=== PATIENT | male | born 1930 | race Hispanic/Latino ===

== ENCOUNTER 2017-03-30 15:51 | Inpatient (IN) | payer MEDICARE ==
[~2017-03-30] VITALS: Ht 175.3 cm; Wt 81.7 kg
[2017-03-30 17:14] LABS: BASOPHILS % (AUTO) 0.8 % (0.0-5.0); EOSINOPHILS % (AUTO) 1.6 % (0.0-8.0); HEMATOCRIT 43.3 % (42-54); LYMPHOCYTES % (AUTO) 20.7 % (21.0-51.0); MEAN CORPUSCULAR HEMOGLOBIN 31.4 pg (27.0-33.0); MEAN CORPUSCULAR HGB CONC 34.2 g/dL (32.0-36.0); MEAN CORPUSCULAR VOLUME 91.9 fL (79-99); MONOCYTES % (AUTO) 12.1 % (3.0-13.0); NEUTROPHILS % (AUTO) 64.8 % (40.0-77.0); PLATELET COUNT (AUTO) 187 K/uL (130-400); RED BLOOD CELL COUNT(AUTO) 4.71 MIL/uL (4.50-6.20); RED CELL DISTRIBUTION WIDTH 13.7 % (11.0-15.5); WHITE BLOOD COUNT (AUTO) 7.1 K/uL (4.8-10.8)
[2017-03-30 17:25] LABS: POTASSIUM 4.2 mmol/L (3.5-5.1)
[2017-03-30 17:29] LABS: ALBUMIN 3.8 g/dL (3.5-5.0); BILIRUBIN,TOTAL 0.3 mg/dL (0.2-1.0)
[2017-03-30 17:51] LABS: APPEARANCE,URINE Clear (CLEAR); BILIRUBIN,URINE Negative (NEGATIVE); COLOR,URINE Yellow (YELLOW); GLUCOSE, URINE (UA) Negative (NEGATIVE); KETONES,URINE Trace mg/dL (NEGATIVE); LEUKOCYTE ESTERASE ,URINE Negative (NEGATIVE); NITRATE,URINE Negative (NEGATIVE); OCCULT BLOOD,URINE Trace (NEGATIVE); PROTEIN,URINE Negative (NEGATIVE)
[2017-03-30 18:04] LABS: BACTERIA,URINE None Seen /HPF (None Seen); RBC,URINE 0-1 /HPF (0-1); SQUAMOUS EPITHELIAL CELL,UR 0-2 /LPF (0-2); WBC,URINE None Seen /HPF (0-1)
[2017-03-30 20:32] VITALS: BP 156/89
[2017-03-30] MEDS ORDERED: LISI-613 PO (20:57)
[2017-03-30] MEDS ORDERED: GLIP1TAB5 PO (20:57)
[2017-03-30] MEDS ORDERED: TAMS-1 PO (20:57)
[2017-03-30] MEDS ORDERED: ASPI-555 PO (20:57)
[2017-03-30] MEDS ORDERED: SIMV40TA2 PO (20:57)
[2017-03-31] VITALS (7 sets, daily range): BP systolic 116–153; BP diastolic 66–81
[2017-03-31] MEDS: ASPIRIN 81 MG EC TAB PO SCH (09:46)
[2017-03-31] MEDS: TAMSULOSIN HCL 0.4 MG CAP.ER.24H PO SCH (09:46)
[2017-03-31] MEDS: ATORVASTATIN CALCIUM 20 MG TABLET PO SCH (09:47)
[2017-03-31] MEDS: GLIPIZIDE XL 2.5MG TAB PO SCH (09:47)
[2017-03-31] MEDS: LISINOPRIL 20 MG TABLET PO SCH (09:47)
[2017-03-31] MEDS: METFORMIN HCL 500 MG TAB.SR.24H PO SCH (09:47)
[2017-03-31] MEDS: TRAZODONE HCL 100 MG TABLET PO SCH (20:53)
[2017-03-31] MEDS ORDERED: RISPERIDONE 1 MG TABLET PO PRN (21:00)
[2017-03-31] MEDS ORDERED: RISPERIDONE 1 MG TABLET PO SCH (21:00)
[2017-04-01 04:08] VITALS: BP 125/67
[2017-04-01 07:46] VITALS: BP 140/79
[2017-04-01] MEDS: ASPIRIN 81 MG EC TAB PO SCH (09:41)
[2017-04-01] MEDS: LISINOPRIL 20 MG TABLET PO SCH (09:41)
[2017-04-01] MEDS: ATORVASTATIN CALCIUM 20 MG TABLET PO SCH (09:41)
[2017-04-01] MEDS: TAMSULOSIN HCL 0.4 MG CAP.ER.24H PO SCH (09:41)
[2017-04-01] MEDS: METFORMIN HCL 500 MG TAB.SR.24H PO SCH (11:22)
[2017-04-01] MEDS: GLIPIZIDE XL 2.5MG TAB PO SCH (11:22)
[2017-04-01 11:28] VITALS: BP 109/59
[2017-04-01 15:53] VITALS: BP 99/57
[2017-04-01 20:53] VITALS: BP 111/61
[2017-04-01] MEDS: TRAZODONE HCL 100 MG TABLET PO SCH (21:34)
[2017-04-01 23:20] VITALS: BP 133/66
[2017-04-02 04:21] VITALS: BP 108/56
[2017-04-02 08:27] VITALS: BP 114/60
[2017-04-02] MEDS: TAMSULOSIN HCL 0.4 MG CAP.ER.24H PO SCH (09:06)
[2017-04-02] MEDS: ASPIRIN 81 MG EC TAB PO SCH (09:07)
[2017-04-02] MEDS: METFORMIN HCL 500 MG TAB.SR.24H PO SCH (09:07)
[2017-04-02] MEDS: ATORVASTATIN CALCIUM 20 MG TABLET PO SCH (09:07)
[2017-04-02] MEDS: GLIPIZIDE XL 2.5MG TAB PO SCH (09:07)
[2017-04-02] MEDS: LISINOPRIL 20 MG TABLET PO SCH (09:07)
[2017-04-02 16:00] VITALS: BP 103/55
[2017-04-02] MEDS ORDERED: TRAZ-147 PO (16:17)
== END 2017-04-02 16:45 | disposition home or self-care (01) | DRG 884 ==
LOC: EDH 15:51 → EDHIP 15:52 → 3AH 19:17
PROVIDERS: ADMIT Internal Medicine; ATTEND Internal Medicine
DX: F03.91 Unspecified dementia, unspecified severity, with behavioral disturbance (principal); F05 Delirium due to known physiological condition; E11.9 Type 2 diabetes mellitus without complications; F03.90 Unspecified dementia, unspecified severity, without behavioral disturbance, psychotic disturbance, mood disturbance, and anxiety; E78.5 Hyperlipidemia, unspecified; I25.10 Atherosclerotic heart disease of native coronary artery without angina pectoris; I10 Essential (primary) hypertension; G47.00 Insomnia, unspecified; Z79.899 Other long term (current) drug therapy
CPT/HCPCS: 36415; 70450; 80053; 81001; 82948; 85025; 97039

== ENCOUNTER 2017-04-22 08:27 | Observation (INO) | payer MEDICARE, OTHER ==
[~2017-04-22] VITALS: Ht 170.2 cm; Wt 81.6 kg
[~2017-04-22 08:27] MED LIST: ASPI-555 PO; GLIP1TAB5 PO; LISI-613 PO; SIMV40TA2 PO; TAMS-1 PO; TRAZ-147 PO
[2017-04-22 09:44] LABS: BASOPHILS % (AUTO) 0.4 % (0.0-5.0); HEMATOCRIT 45.6 % (42-54); LYMPHOCYTES % (AUTO) 12.4 % (21.0-51.0); MEAN CORPUSCULAR HEMOGLOBIN 31.1 pg (27.0-33.0); MEAN CORPUSCULAR HGB CONC 34.2 g/dL (32.0-36.0); MEAN CORPUSCULAR VOLUME 90.8 fL (79-99); MONOCYTES % (AUTO) 14.4 % (3.0-13.0); NEUTROPHILS % (AUTO) 72.8 % (40.0-77.0); PLATELET COUNT (AUTO) 166 K/uL (130-400); RED BLOOD CELL COUNT(AUTO) 5.02 MIL/uL (4.50-6.20); RED CELL DISTRIBUTION WIDTH 14.1 % (11.0-15.5); WHITE BLOOD COUNT (AUTO) 8.4 K/uL (4.8-10.8)
[2017-04-22 09:52] LABS: CREATININE 1.1 mg/dL (0.5-1.5)
[2017-04-22 09:56] LABS: ALBUMIN 3.8 g/dL (3.5-5.0); BILIRUBIN,TOTAL 0.5 mg/dL (0.2-1.0); TOTAL PROTEIN, SERUM 7.4 g/dL (6.0-8.3)
[2017-04-22] MEDS ORDERED: ACETAMINOPHEN 650 MG SUPPOSITORY RC ONE (09:56)
[2017-04-22] MEDS ORDERED: SODIUM CHLORIDE 0.9% 1000ML 1,000 ML IV ONE (09:56)
[2017-04-22 10:03] LABS: CREATINE KINASE MB 1.5 ng/mL (0.5-3.6); CREATINE KINASE, TOTAL 246 U/L (21-232); MYOGLOBIN 140 ng/mL (10-92); TROPONIN I < 0.04 ng/mL (0.00-0.06)
[2017-04-22 11:43] LABS: APPEARANCE,URINE Clear (CLEAR); BILIRUBIN,URINE Negative (NEGATIVE); COLOR,URINE Yellow (YELLOW); GLUCOSE, URINE (UA) Negative (NEGATIVE); KETONES,URINE Negative (NEGATIVE); LEUKOCYTE ESTERASE ,URINE Negative (NEGATIVE); NITRATE,URINE Negative (NEGATIVE); OCCULT BLOOD,URINE Moderate (NEGATIVE); PROTEIN,URINE Trace (NEGATIVE); UROBILINOGEN,URINE 0.2 mg/dL (0.2-1.0)
[2017-04-22] MEDS ORDERED: OSELTAMIVIR PHOSPHATE 75 MG CAP ONE (11:59)
[2017-04-22 12:09] LABS: AMORPHOUS SEDIMENT,UR Few /LPF (None Seen); BACTERIA,URINE Rare /HPF (None Seen); SQUAMOUS EPITHELIAL CELL,UR Rare /LPF (0-2); WBC,URINE 0-1 /HPF (0-1)
[2017-04-22 16:50] VITALS: BP 137/96
[2017-04-22] MEDS ORDERED: ACETAMINOPHEN 325 MG TAB PO PRN (17:30)
[2017-04-22] MEDS ORDERED: CLONIDINE HCL 0.1 MG TABLET PO PRN (17:30)
[2017-04-22] MEDS: GUAIFENESIN-DM 200/20 MG 10 ML PO PRN ×2 (17:58→23:40)
[2017-04-22 20:00] VITALS: BP 129/65
[2017-04-22] MEDS ORDERED: PHARMACY COMMUNICATION MISC SCH (23:45)
[2017-04-23] VITALS (7 sets, daily range): BP systolic 120–148; BP diastolic 59–72
[2017-04-23] MEDS: GUAIFENESIN-DM 200/20 MG 10 ML PO PRN ×2 (05:52→19:54)
[2017-04-23] MEDS ORDERED: COMPOUND PO MISCELLANEOUS 1 EACH MISC MISC PRN (07:00)
[2017-04-23] MEDS: OSELTAMIVIR PHOSPHATE 300 MG, COMPOUNDING VEHICLE SF NO.9 50 ML PO SCH ×4 (08:42→19:54)
[2017-04-24 03:05] VITALS: BP 152/83
[2017-04-24] MEDS ORDERED: BENZ-51 PO (07:20)
[2017-04-24 08:33] VITALS: BP 141/76
[2017-04-24] MEDS: OSELTAMIVIR PHOSPHATE 300 MG, COMPOUNDING VEHICLE SF NO.9 50 ML PO SCH ×2 (09:47)
[2017-04-24 12:00] VITALS: BP 140/74
[2017-04-24 17:22] VITALS: BP 149/83
== END 2017-04-24 18:35 ==
LOC: EDH 08:27 → 3AH 14:20
PROVIDERS: ADMIT Internal Medicine; ATTEND Internal Medicine
DX: J11.00 Influenza due to unidentified influenza virus with unspecified type of pneumonia (principal); R62.7 Adult failure to thrive; I11.9 Hypertensive heart disease without heart failure; E78.5 Hyperlipidemia, unspecified; E11.9 Type 2 diabetes mellitus without complications; N40.0 Benign prostatic hyperplasia without lower urinary tract symptoms; I25.10 Atherosclerotic heart disease of native coronary artery without angina pectoris; M19.90 Unspecified osteoarthritis, unspecified site; G30.9 Alzheimer's disease, unspecified; F05 Delirium due to known physiological condition; F02.80 Dementia in other diseases classified elsewhere, unspecified severity, without behavioral disturbance, psychotic disturbance, mood disturbance, and anxiety; G47.00 Insomnia, unspecified; Z95.1 Presence of aortocoronary bypass graft
CPT/HCPCS: 36415; 70450; 71045; 80053; 81001; 82550; 82553; 82948 ×8; 83874; 84484; 85025; 87040 ×2; 87804 ×2; 93005; 97116 ×2; 97161; 99285; G0378 ×52; G8978; G8979; G8980; G8981; G8982; G8983; J7030

== ENCOUNTER 2017-12-02 22:12 | Emergency (ER) | payer MEDICARE, OTHER ==
[~2017-12-02 22:12] MED LIST changes: +BENZ-51 PO; -TRAZ-147 PO; +TRAZ-187 PO
[2017-12-02] MEDS ORDERED: OCTYL 2-CYANOACRYLATE 1 EACH TP ONE (23:02)
[2017-12-02] MEDS ORDERED: TETANUS/DIPHTHERIA TOXOID [ADULT] 0.5 ML VIAL IM ONE (23:02)
[2017-12-02 23:24] LABS: BASOPHILS % (AUTO) 0.6 % (0.0-5.0); HEMATOCRIT 40.1 % (42-54); LYMPHOCYTES % (AUTO) 13.1 % (21.0-51.0); MEAN CORPUSCULAR HEMOGLOBIN 31.3 pg (27.0-33.0); MEAN CORPUSCULAR HGB CONC 33.9 g/dL (32.0-36.0); MEAN CORPUSCULAR VOLUME 92.2 fL (79-99); MONOCYTES % (AUTO) 9.6 % (3.0-13.0); NEUTROPHILS % (AUTO) 75.7 % (40.0-77.0); PLATELET COUNT (AUTO) 207 K/uL (130-400); RED BLOOD CELL COUNT(AUTO) 4.34 MIL/uL (4.50-6.20); RED CELL DISTRIBUTION WIDTH 14.1 % (11.0-15.5); WHITE BLOOD COUNT (AUTO) 6.8 K/uL (4.8-10.8)
[2017-12-02 23:32] LABS: CREATININE 0.8 mg/dL (0.5-1.5); POTASSIUM 3.4 mmol/L (3.5-5.1)
[2017-12-02] MEDS ORDERED: POTASSIUM BICARB/CIT AC 25 MEQ TABLET.EFF ONE (23:53)
== END 2017-12-03 00:50 | disposition home or self-care (01) ==
LOC: EDH 22:12
DX: S01.112A Laceration without foreign body of left eyelid and periocular area, initial encounter (principal); S51.012A Laceration without foreign body of left elbow, initial encounter; I10 Essential (primary) hypertension; F03.90 Unspecified dementia, unspecified severity, without behavioral disturbance, psychotic disturbance, mood disturbance, and anxiety; E11.9 Type 2 diabetes mellitus without complications; E78.5 Hyperlipidemia, unspecified; I25.810 Atherosclerosis of coronary artery bypass graft(s) without angina pectoris; Z86.73 Personal history of transient ischemic attack (TIA), and cerebral infarction without residual deficits; Z95.1 Presence of aortocoronary bypass graft; Z95.0 Presence of cardiac pacemaker; Z87.891 Personal history of nicotine dependence; W18.39XA Other fall on same level, initial encounter; Y93.01 Activity, walking, marching and hiking; Y92.098 Other place in other non-institutional residence as the place of occurrence of the external cause; Y99.8 Other external cause status
CPT/HCPCS: 12052; 36415; 70450; 71045; 72125; 72170; 73080; 80048; 85025; 90471; 90714

== ENCOUNTER 2018-01-30 17:28 | Inpatient (IN) | payer MEDICARE, OTHER ==
[~2018-01-30] VITALS: Ht 185.4 cm; Wt 68.9 kg
[2018-01-30] MEDS ORDERED: ACETAMINOPHEN 650 MG SUPPOSITORY RC ONE (17:40)
[2018-01-30 18:01] LABS: BASOPHILS % (AUTO) 0.5 % (0.0-5.0); EOSINOPHILS % (AUTO) 0.3 % (0.0-8.0); HEMATOCRIT 42.6 % (42-54); LYMPHOCYTES % (AUTO) 8.2 % (21.0-51.0); MEAN CORPUSCULAR HEMOGLOBIN 30.8 pg (27.0-33.0); MEAN CORPUSCULAR HGB CONC 32.8 g/dL (32.0-36.0); MEAN CORPUSCULAR VOLUME 93.8 fL (79-99); MONOCYTES % (AUTO) 12.2 % (3.0-13.0); NEUTROPHILS % (AUTO) 78.8 % (40.0-77.0); PLATELET COUNT (AUTO) 155 K/uL (130-400); RED BLOOD CELL COUNT(AUTO) 4.54 MIL/uL (4.50-6.20); RED CELL DISTRIBUTION WIDTH 14.4 % (11.0-15.5); WHITE BLOOD COUNT (AUTO) 9.2 K/uL (4.8-10.8)
[2018-01-30 18:12] LABS: APPEARANCE,URINE Clear (CLEAR); BILIRUBIN,URINE Negative (NEGATIVE); COLOR,URINE Yellow (YELLOW); GLUCOSE, URINE (UA) Negative (NEGATIVE); KETONES,URINE Trace mg/dL (NEGATIVE); LEUKOCYTE ESTERASE ,URINE Negative (NEGATIVE); NITRATE,URINE Negative (NEGATIVE); OCCULT BLOOD,URINE Moderate (NEGATIVE); PROTEIN,URINE Negative (NEGATIVE)
[2018-01-30 18:15] LABS: CREATININE 1.1 mg/dL (0.5-1.5); POTASSIUM 4.3 mmol/L (3.5-5.1)
[2018-01-30 18:19] LABS: INR 1.04 (0.85-1.15); PARTIAL THROMBOPLASTIN TIME 36.2 SEC (26.3-35.5); PROTHROMBIN TIME 10.9 SEC (9.6-11.6)
[2018-01-30 18:21] LABS: ALBUMIN 3.5 g/dL (3.5-5.0); BILIRUBIN,TOTAL 0.4 mg/dL (0.2-1.0); TOTAL PROTEIN, SERUM 7.1 g/dL (6.0-8.3)
[2018-01-30 18:26] LABS: CREATINE KINASE, TOTAL 75 U/L (21-232); MYOGLOBIN 60 ng/mL (10-92); TROPONIN I < 0.04 ng/mL (0.00-0.06)
[2018-01-30 18:27] LABS: AMORPHOUS SEDIMENT,UR Few /LPF (None Seen); BACTERIA,URINE None Seen /HPF (None Seen); RBC,URINE 0-1 /HPF (0-1); SQUAMOUS EPITHELIAL CELL,UR None Seen /HPF (0-2); WBC,URINE None Seen /HPF (0-1)
[2018-01-30] MEDS ORDERED: CEFTRIAXONE SODIUM 1 GM ONE (19:50)
[2018-01-30] MEDS ORDERED: SODIUM CHLORIDE 0.9% 500ML 500 ML IV ONE (19:50)
[2018-01-30] MEDS ORDERED: COMPOUND IV MISC 1 EACH IVSOLN MISC PRN (20:45)
[2018-01-30] MEDS: AZITHROMYCIN 250 MG in SODIUM CHLORIDE 0.9% 100 ML IV SCH (22:50)
[2018-01-30] MEDS: OSELTAMIVIR PHOSPHATE 75 MG CAP PO SCH (22:50)
[2018-01-30 23:14] VITALS: BP 106/55
[2018-01-30 23:25] VITALS: BP 95/49
[2018-01-31] MEDS ORDERED: DEXTROSE 50%-WATER 50 ML DISP.SYRIN IV PRN
[2018-01-31] MEDS ORDERED: GLUCAGON 1MG KIT 1 MG ML IM PRN
[2018-01-31] MEDS ORDERED: SODIUM CHLORIDE 0.9% 1000ML 1,000 ML IV ONE (00:16)
[2018-01-31 03:00] VITALS: BP 112/49
[2018-01-31 05:13] LABS: HEMATOCRIT 38.6 % (42-54); MEAN CORPUSCULAR HGB CONC 34.3 g/dL (32.0-36.0); MEAN CORPUSCULAR VOLUME 93.1 fL (79-99); PLATELET COUNT (AUTO) 169 K/uL (130-400); RED BLOOD CELL COUNT(AUTO) 4.15 MIL/uL (4.50-6.20); RED CELL DISTRIBUTION WIDTH 14.7 % (11.0-15.5); WHITE BLOOD COUNT (AUTO) 8.9 K/uL (4.8-10.8)
[2018-01-31 05:30] LABS: ALBUMIN 2.9 g/dL (3.5-5.0); BILIRUBIN,TOTAL 0.5 mg/dL (0.2-1.0); CREATININE 0.9 mg/dL (0.5-1.5); POTASSIUM 4.1 mmol/L (3.5-5.1); TOTAL PROTEIN, SERUM 6.1 g/dL (6.0-8.3)
[2018-01-31] MEDS: INSULIN HUMULIN R 100 UNIT/ML 3ML SQ SCH ×4 (06:52→21:00)
[2018-01-31 08:00] VITALS: BP 113/50
[2018-01-31] MEDS: OSELTAMIVIR PHOSPHATE 75 MG CAP PO SCH ×2 (09:51→22:12)
[2018-01-31] MEDS: SODIUM CHLORIDE 0.9% 1000ML 1,000 ML IV SCH ×2 (09:51→18:25)
[2018-01-31 11:00] VITALS: BP 124/78
[2018-01-31 16:00] VITALS: BP 107/41
[2018-01-31] MEDS: CEFTRIAXONE SODIUM 1 GM IVP SCH (18:41)
[2018-01-31 19:00] VITALS: BP 109/45
[2018-01-31] MEDS: AZITHROMYCIN 250 MG in SODIUM CHLORIDE 0.9% 100 ML IV SCH (22:12)
[2018-01-31 23:00] VITALS: BP 104/55
[2018-02-01] MEDS: SODIUM CHLORIDE 0.9% 1000ML 1,000 ML IV SCH ×3 (02:13→16:00)
[2018-02-01 03:00] VITALS: BP 106/50
[2018-02-01] MEDS: INSULIN HUMULIN R 100 UNIT/ML 3ML SQ SCH ×4 (07:30→21:00)
[2018-02-01 08:15] VITALS: BP 138/70
[2018-02-01] MEDS: OSELTAMIVIR PHOSPHATE 75 MG CAP PO SCH ×2 (10:11→21:05)
[2018-02-01 12:00] VITALS: BP 118/62
[2018-02-01 16:00] VITALS: BP 109/62
[2018-02-01] MEDS: CEFTRIAXONE SODIUM 1 GM IVP SCH (19:05)
[2018-02-01 19:22] VITALS: BP 145/73
[2018-02-01] MEDS ORDERED: HALOPERIDOL LACTATE 5 MG/ML VIAL ONE (21:02)
[2018-02-01] MEDS: AZITHROMYCIN 250 MG in SODIUM CHLORIDE 0.9% 100 ML IV SCH (22:12)
[2018-02-02] VITALS (8 sets, daily range): BP systolic 128–149; BP diastolic 61–91
[2018-02-02] MEDS: HALOPERIDOL LACTATE 5 MG/ML VIAL IV PRN (03:41)
[2018-02-02] MEDS: INSULIN HUMULIN R 100 UNIT/ML 3ML SQ SCH ×4 (07:30→21:00)
[2018-02-02] MEDS: OSELTAMIVIR PHOSPHATE 75 MG CAP PO SCH ×2 (09:33→21:20)
[2018-02-02] MEDS: SODIUM CHLORIDE 0.9% 1000ML 1,000 ML IV SCH (09:34)
[2018-02-02 17:56] LABS: BASOPHILS % (AUTO) 0.5 % (0.0-5.0); EOSINOPHILS % (AUTO) 1.9 % (0.0-8.0); LYMPHOCYTES % (AUTO) 21.5 % (21.0-51.0); MEAN CORPUSCULAR HEMOGLOBIN 31.6 pg (27.0-33.0); MEAN CORPUSCULAR HGB CONC 34.1 g/dL (32.0-36.0); MEAN CORPUSCULAR VOLUME 92.5 fL (79-99); MONOCYTES % (AUTO) 10.5 % (3.0-13.0); NEUTROPHILS % (AUTO) 65.6 % (40.0-77.0); PLATELET COUNT (AUTO) 198 K/uL (130-400); RED BLOOD CELL COUNT(AUTO) 3.89 MIL/uL (4.50-6.20); RED CELL DISTRIBUTION WIDTH 14.3 % (11.0-15.5); WHITE BLOOD COUNT (AUTO) 6.4 K/uL (4.8-10.8)
[2018-02-02 18:13] LABS: ALBUMIN 2.6 g/dL (3.5-5.0); BILIRUBIN,TOTAL 0.4 mg/dL (0.2-1.0); CREATININE 0.8 mg/dL (0.5-1.5); POTASSIUM 3.4 mmol/L (3.5-5.1); TOTAL PROTEIN, SERUM 5.7 g/dL (6.0-8.3)
[2018-02-02] MEDS: CEFTRIAXONE SODIUM 1 GM IVP SCH (19:48)
[2018-02-02] MEDS: QUETIAPINE FUMARATE 25 MG TAB PO SCH (21:20)
[2018-02-02] MEDS: AZITHROMYCIN 250 MG in SODIUM CHLORIDE 0.9% 100 ML IV SCH (21:27)
[2018-02-03 03:00] VITALS: BP 144/66
[2018-02-03] MEDS: INSULIN HUMULIN R 100 UNIT/ML 3ML SQ SCH ×3 (06:42→17:01)
[2018-02-03 08:00] VITALS: BP 160/62
[2018-02-03] MEDS: OSELTAMIVIR PHOSPHATE 75 MG CAP PO SCH ×2 (09:23→23:15)
[2018-02-03] MEDS: QUETIAPINE FUMARATE 25 MG TAB PO SCH (09:23)
[2018-02-03] MEDS: SODIUM CHLORIDE 0.9% 1000ML 1,000 ML IV SCH (09:24)
[2018-02-03 12:00] VITALS: BP 135/71
[2018-02-03 16:00] VITALS: BP 121/68
[2018-02-03] MEDS: CEFTRIAXONE SODIUM 1 GM IVP SCH (18:47)
[2018-02-03 19:56] VITALS: BP 129/60
[2018-02-03] MEDS ORDERED: SODIUM CHLORIDE 0.9% 1000ML 1,000 ML IV SCH (23:00)
[2018-02-03] MEDS ORDERED: GUAIFENESIN-DM 200/20 MG 10 ML PO PRN (23:00)
[2018-02-03] MEDS: AZITHROMYCIN 250 MG in SODIUM CHLORIDE 0.9% 100 ML IV SCH (23:15)
[2018-02-03 23:59] VITALS: BP 136/64
[2018-02-04 03:42] VITALS: BP 180/78
[2018-02-04 04:49] LABS: HEMATOCRIT 38.1 % (42-54); MEAN CORPUSCULAR HEMOGLOBIN 32.4 pg (27.0-33.0); MEAN CORPUSCULAR VOLUME 92.4 fL (79-99); PLATELET COUNT (AUTO) 230 K/uL (130-400); RED BLOOD CELL COUNT(AUTO) 4.12 MIL/uL (4.50-6.20); RED CELL DISTRIBUTION WIDTH 14.3 % (11.0-15.5); WHITE BLOOD COUNT (AUTO) 6.5 K/uL (4.8-10.8)
[2018-02-04 05:03] LABS: ALBUMIN 2.6 g/dL (3.5-5.0); BILIRUBIN,TOTAL 0.5 mg/dL (0.2-1.0); CREATININE 0.8 mg/dL (0.5-1.5); POTASSIUM 3.3 mmol/L (3.5-5.1); TOTAL PROTEIN, SERUM 5.9 g/dL (6.0-8.3)
[2018-02-04] MEDS: INSULIN HUMULIN R 100 UNIT/ML 3ML SQ SCH ×4 (06:03→20:46)
[2018-02-04 08:00] VITALS: BP 162/68
[2018-02-04] MEDS ORDERED: POTASSIUM CHLORIDE 20 MEQ ERTAB PO PRN (08:00)
[2018-02-04] MEDS ORDERED: LIDOCAINE HCL-MPF 1% 2ML VIAL IVP PRN (08:00)
[2018-02-04] MEDS ORDERED: POTASSIUM CHLORIDE 20MEQ/100ML 100 ML IV PRN (08:00)
[2018-02-04] MEDS ORDERED: MAGNESIUM 2GM PREMIX 50ML 50 ML IV PRN (08:00)
[2018-02-04] MEDS: OSELTAMIVIR PHOSPHATE 75 MG CAP PO SCH (09:53)
[2018-02-04] MEDS: POTASSIUM CHLORIDE 10% ELIXIR 20 MEQ/15 ML UDCUP PO PRN ×2 (09:54→15:45)
[2018-02-04 11:00] VITALS: BP 115/66
[2018-02-04] MEDS ORDERED: COMPOUND IV REFRIGERATED 1 EACH IVSOLN MISC PRN (12:15)
[2018-02-04 16:00] VITALS: BP 144/71
[2018-02-04 18:12] LABS: HEMATOCRIT 38.5 % (42-54); MEAN CORPUSCULAR HEMOGLOBIN 31.6 pg (27.0-33.0); MEAN CORPUSCULAR HGB CONC 34.1 g/dL (32.0-36.0); MEAN CORPUSCULAR VOLUME 92.6 fL (79-99); PLATELET COUNT (AUTO) 254 K/uL (130-400); RED BLOOD CELL COUNT(AUTO) 4.16 MIL/uL (4.50-6.20); RED CELL DISTRIBUTION WIDTH 14.4 % (11.0-15.5); WHITE BLOOD COUNT (AUTO) 9.9 K/uL (4.8-10.8)
[2018-02-04] MEDS: CEFTRIAXONE SODIUM 1 GM IVP SCH (18:23)
[2018-02-04 18:28] LABS: ALBUMIN 2.6 g/dL (3.5-5.0); BILIRUBIN,TOTAL 0.4 mg/dL (0.2-1.0); CREATININE 0.9 mg/dL (0.5-1.5); TOTAL PROTEIN, SERUM 5.8 g/dL (6.0-8.3)
[2018-02-04 20:00] VITALS: BP 149/70
[2018-02-04] MEDS ORDERED: QUETIAPINE FUMARATE 25 MG TAB PO SCH (21:00)
[2018-02-04] MEDS: AZITHROMYCIN 250 MG in SODIUM CHLORIDE 0.9% 100 ML IV SCH (22:24)
[2018-02-05] VITALS: BP 151/69
[2018-02-05] MEDS: HALOPERIDOL LACTATE 5 MG/ML VIAL IV PRN (01:39)
[2018-02-05 04:00] VITALS: BP 158/70
[2018-02-05 04:05] VITALS: BP 158/70
[2018-02-05] MEDS: INSULIN HUMULIN R 100 UNIT/ML 3ML SQ SCH ×2 (06:31→11:30)
[2018-02-05 08:00] VITALS: BP 148/71
[2018-02-05 08:43] LABS: HEMATOCRIT 39.1 % (42-54); MEAN CORPUSCULAR HEMOGLOBIN 30.7 pg (27.0-33.0); MEAN CORPUSCULAR HGB CONC 33.2 g/dL (32.0-36.0); MEAN CORPUSCULAR VOLUME 92.3 fL (79-99); PLATELET COUNT (AUTO) 252 K/uL (130-400); RED BLOOD CELL COUNT(AUTO) 4.24 MIL/uL (4.50-6.20); RED CELL DISTRIBUTION WIDTH 14.6 % (11.0-15.5); WHITE BLOOD COUNT (AUTO) 8.4 K/uL (4.8-10.8)
[2018-02-05 08:55] LABS: ALBUMIN 2.9 g/dL (3.5-5.0); BILIRUBIN,TOTAL 0.6 mg/dL (0.2-1.0); CREATININE 0.7 mg/dL (0.5-1.5); MAGNESIUM 1.8 mg/dL (1.80-2.40); POTASSIUM 3.8 mmol/L (3.5-5.1); TOTAL PROTEIN, SERUM 6.4 g/dL (6.0-8.3)
[2018-02-05 11:00] VITALS: BP 147/69
== END 2018-02-05 16:34 | disposition home or self-care (01) | DRG 193 ==
LOC: EDH 17:28 → EDHIP 20:16 → OBSVTOIN 20:16 → 3BH 22:05 → 3AH 02-02 09:16
PROVIDERS: ADMIT Internal Medicine; ATTEND Internal Medicine
DX: J11.00 Influenza due to unidentified influenza virus with unspecified type of pneumonia (principal); J96.20 Acute and chronic respiratory failure, unspecified whether with hypoxia or hypercapnia; F05 Delirium due to known physiological condition; F02.80 Dementia in other diseases classified elsewhere, unspecified severity, without behavioral disturbance, psychotic disturbance, mood disturbance, and anxiety; G30.9 Alzheimer's disease, unspecified; E11.9 Type 2 diabetes mellitus without complications; I10 Essential (primary) hypertension; I25.10 Atherosclerotic heart disease of native coronary artery without angina pectoris; E78.5 Hyperlipidemia, unspecified; N40.0 Benign prostatic hyperplasia without lower urinary tract symptoms; W06.XXXA Fall from bed, initial encounter; Y93.89 Activity, other specified; Y92.89 Other specified places as the place of occurrence of the external cause; Y99.8 Other external cause status; Z86.73 Personal history of transient ischemic attack (TIA), and cerebral infarction without residual deficits; Z95.0 Presence of cardiac pacemaker
CPT/HCPCS: 36415; 70450; 71045; 71250; 74150; 80053; 81001; 82550; 82948; 83605; 83735; 83874; 84484; 85025; 85027; 85610; 85730; 87040; 87088; 87804; 87880; 93005; 96360; 96361; G0378; J0456; J0696; J1630; J1815; J3475; J7030; J7040

== ENCOUNTER 2018-11-17 02:52 | Emergency (ER) | payer MEDICARE, OTHER ==
[2018-11-17] MEDS ORDERED: ONDANSETRON HCL 4 MG/2 ML VIAL ONE (03:11)
[2018-11-17] MEDS ORDERED: ACETAMINOPHEN-CODEINE ELIXIR 5 ML UDCUP ONE ×2 (03:12→03:13)
[2018-11-17] MEDS ORDERED: TETANUS/DIPHTHERIA TOXOID [ADULT] 0.5 ML VIAL IM ONE (03:12)
[2018-11-17] MEDS ORDERED: LIDOCAINE HCL 1% 20 ML VIAL ONE (03:26)
[2018-11-17] MEDS ORDERED: AMPICILLIN SODIUM/SULBACTAM NA 1.5GM VIAL ONE (03:26)
[2018-11-17 04:01] LABS: BASOPHILS % (AUTO) 0.5 % (0.0-5.0); EOSINOPHILS % (AUTO) 0.6 % (0.0-8.0); HEMATOCRIT 32.3 % (42-54); LYMPHOCYTES % (AUTO) 20.3 % (21.0-51.0); MEAN CORPUSCULAR HEMOGLOBIN 30.6 pg (27.0-33.0); MEAN CORPUSCULAR HGB CONC 33.4 g/dL (32.0-36.0); MEAN CORPUSCULAR VOLUME 91.5 fL (79-99); MONOCYTES % (AUTO) 7.3 % (3.0-13.0); NEUTROPHILS % (AUTO) 71.3 % (40.0-77.0); PLATELET COUNT (AUTO) 307 K/uL (130-400); RED BLOOD CELL COUNT(AUTO) 3.53 MIL/uL (4.50-6.20); RED CELL DISTRIBUTION WIDTH 18.3 % (11.0-15.5); WHITE BLOOD COUNT (AUTO) 9.5 K/uL (4.8-10.8)
[2018-11-17 04:08] LABS: CREATININE 1.4 mg/dL (0.5-1.5); POTASSIUM 4.1 mmol/L (3.5-5.1)
== END 2018-11-17 05:30 | disposition home or self-care (01) ==
LOC: EDH 02:52
DX: S61.412A Laceration without foreign body of left hand, initial encounter (principal); I10 Essential (primary) hypertension; E78.5 Hyperlipidemia, unspecified; E11.9 Type 2 diabetes mellitus without complications; I25.10 Atherosclerotic heart disease of native coronary artery without angina pectoris; Z95.1 Presence of aortocoronary bypass graft; W18.39XA Other fall on same level, initial encounter; Y93.89 Activity, other specified; Y92.89 Other specified places as the place of occurrence of the external cause; Y99.8 Other external cause status
CPT/HCPCS: 12045; 36415; 73130; 80048; 85025; 90471; 90714; 93005; 96365; 96375; 99285; J0295; J2405

== ENCOUNTER 2019-01-13 03:11 | Emergency (ER) | payer MEDICARE, OTHER | END 2019-01-13 06:00 | disposition home or self-care (01) | LOC: EDH 03:11 | DX: S09.90XA Unspecified injury of head, initial encounter (principal); S51.002A Unspecified open wound of left elbow, initial encounter; S01.112A Laceration without foreign body of left eyelid and periocular area, initial encounter; E11.9 Type 2 diabetes mellitus without complications; N40.0 Benign prostatic hyperplasia without lower urinary tract symptoms; I25.10 Atherosclerotic heart disease of native coronary artery without angina pectoris; I10 Essential (primary) hypertension; E78.5 Hyperlipidemia, unspecified; F03.90 Unspecified dementia, unspecified severity, without behavioral disturbance, psychotic disturbance, mood disturbance, and anxiety; Z95.1 Presence of aortocoronary bypass graft; W19.XXXA Unspecified fall, initial encounter; Y93.89 Activity, other specified; Y92.098 Other place in other non-institutional residence as the place of occurrence of the external cause; Y99.8 Other external cause status | CPT/HCPCS: 12011; 70450; 72125; 73070 ==

== ENCOUNTER 2019-09-13 03:11 | Emergency (ER) | payer MEDICARE, OTHER ==
[~2019-09-13 03:11] MED LIST changes: -ASPI-555 PO; +ASPI-556 PO
[2019-09-13] MEDS ORDERED: TETANUS/DIPHTHERIA TOXOID [ADULT] 0.5 ML VIAL IM ONE (03:22)
== END 2019-09-13 06:38 | disposition home or self-care (01) ==
LOC: EDH 03:11
DX: S51.812A Laceration without foreign body of left forearm, initial encounter (principal); S00.03XA Contusion of scalp, initial encounter; S50.02XA Contusion of left elbow, initial encounter; I10 Essential (primary) hypertension; E11.9 Type 2 diabetes mellitus without complications; E78.5 Hyperlipidemia, unspecified; I25.10 Atherosclerotic heart disease of native coronary artery without angina pectoris; Z95.0 Presence of cardiac pacemaker; F03.90 Unspecified dementia, unspecified severity, without behavioral disturbance, psychotic disturbance, mood disturbance, and anxiety; Z95.1 Presence of aortocoronary bypass graft; Z79.899 Other long term (current) drug therapy; W07.XXXA Fall from chair, initial encounter; Y93.89 Activity, other specified; Y92.89 Other specified places as the place of occurrence of the external cause; Y99.8 Other external cause status
CPT/HCPCS: 70450; 72125; 73080; 90471; 90714